=== PATIENT | female | born 1980 | race African-American/Black ===

== ENCOUNTER 2018-04-18 22:02 | Emergency (ER) | payer BC ==
[2018-04-18 22:13] VITALS: BP 139/73
[2018-04-18] MEDS ORDERED: DOXYCYCLINE HYCLATE 100 MG TABLET PO ONE (23:25)
[2018-04-18] MEDS ORDERED: SULFAMETHOXAZOLE/TRIMETHOPRIM 800-160 MG TABLET PO ONE (23:26)
--- NOTE | 2018-04-18 23:32 | ER Document Report ---
ED General - General Chief Complaint: Skin Problem Stated Complaint: LEG PAIN Time Seen by Provider: 04/18/18 23:02 Notes: Patient is a 30-year-old female presents with complaint of edema and swelling in her left lower extremity. She also has edema and swelling in her right lower extremity. She has a history of chronic lymphedema. She has had ultrasounds looking at her legs to rule out DVT and these have been negative. She has had cellulitis once in the past. Cleared with antibiotics. 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 She says that she recently had a flu shot. She had a possible fever a day or 2 after flu shot. That maybe is related to the flu shot. She does start feeling as if she had a fever today and noticed the red areas on her left lower extremity and therefore came to the ER. Not diabetic. TRAVEL OUTSIDE OF THE [place] IN LAST 30 DAYS: No - Related Data Allergies/Adverse Reactions: Penicillins Allergy (Verified 04/18/18 22:56) Past Medical History - Social History Smoking Status: Unknown if Ever Smoked Frequency of alcohol use: None Drug Abuse: None Family History: Reviewed & Not Pertinent Patient has suicidal ideation: No Patient has homicidal ideation: No Renal/ Medical History: Denies: Hx Peritoneal Dialysis Past Surgical History: Reports: Hx Section - x 2 - Immunizations Hx Diphtheria, Pertussis, Tetanus Vaccination: Yes Review of Systems - Review of Systems Notes: My Normal Review Basic REVIEW OF SYSTEMS: CONSTITUTIONAL : Denies fever, chills, or sweats. Denies recent illness. EENT: Denies eye, ear, throat, or mouth pain or symptoms. Denies nasal or sinus congestion. RESPIRATORY: No difficulty breathing. GASTROINTESTINAL: Dental pain or vomiting. MUSCULOSKELETAL: Edema redness in left lower extremity. SKIN: Redness on left lower extremity. NEUROLOGICAL: Denies altered mental status. Denies sensory or motor loss. ALL OTHER SYSTEMS REVIEWED AND NEGATIVE. Physical Exam - Vital signs Vitals: Temp Pulse Resp BP Pulse Ox 98.8 F 79 23 H 139/73 H 96 04/18/18 22:12 04/18/18 22:12 04/18/18 22:12 04/18/18 22:12 04/18/18 22:12 - Notes Notes: General Appearance: Well nourished, alert, cooperative, no acute distress, no obvious discomfort. Vitals: reviewed, See vital signs table. Lungs: No wheezing, No rales, No rhonci, No accessory muscle use, good air exchange bilaterally. Heart: Normal rate, Regular rythm, No murmur, no rub Abdomen: Normal BS, soft, No rigidity, No abdominal tenderness, No guarding, no rebound, no abdominal masses, no organomegaly Extremities: Edema in both lower extremities. Slightly worse on the left. Patient does have 2 areas of deep red blotches that are very warm to touch consistent with cellulitis. Good distal pulses. Skin: warm, dry, appropriate color, cellulitis of left lower extremity Neuro: speech clear, oriented x 3, normal affect, responds appropriately to questions. Course - Re-evaluation Re-evalutation: 04/18/18 23:43 Patient has exam consistent with chronic lymphedema with superimposed cellulitis in left lower extremity. She is a workup for DVT in the past and this has been negative and therefore I do not think she needs further workup for DVT at this time. Her physical exam findings are consistent with beginning cellulitis in left lower extremity. She has had this before. She does work in the hospital and therefore I will double cover her for staph with both doxycycline as well as Bactrim. Doxycycline will also cover for strep infection of the leg. She says she is able to follow-up with her primary care doctor on Saturday. I informed her if she has any spreading redness before then or recurrent fevers that she must return to ER immediately. Patient is off this weekend and therefore encouraged her to keep her legs elevated and to not be on her feet anymore than she needs to. Patient agrees with plan and will be discharged home. Dictation of this chart was performed using voice recognition software; therefore, there may be some unintended grammatical errors. - Vital Signs Vital signs: Temp Pulse Resp BP Pulse Ox 98.8 F 79 23 H 139/73 H 96 04/18/18 22:12 04/18/18 22:12 04/18/18 22:12 04/18/18 22:12 04/18/18 22:12 Discharge - Discharge Clinical Impression: Cellulitis Qualifiers: Site of cellulitis: extremity Site of cellulitis of extremity: lower extremity Laterality: left Qualified Code(s): L03.116 - Cellulitis of left lower limb Condition: Good Disposition: HOME, SELF-CARE Additional Instructions: Please keep your leg elevated this weekend. Take the antibiotics as prescribed. Wear your compression stocking when going back to work on Saturday. Make sure your clean the compression stocking with bleach wand water before wearing it again. Please take the antibiotics as prescribed. Please return to the ER immediately if you develop fevers, worsening redness, difficulty breathing, or feel unwell. Doxycycline will make your skin more sensitive to the sun so please make sure you keep your skin covered or wear sunscreen whenever out in the sun. Please stop the antibiotic and return to the ER if you develop a rash anywhere else on your body. Prescriptions: Doxycycline Hyclate 100 mg PO BID #14 tablet Furosemide [Lasix 20 mg Tablet] 20 mg PO QAM #10 tablet Sulfamethoxazole/Trimethoprim [Bactrim Ds Tablet] 1 each PO BID #14 tablet Referrals: NEAL AYON DO [Primary Care Provider] - 04/22/18
== END 2018-04-18 23:44 | disposition home or self-care (01) ==
LOC: ER 22:02
DX: L03.116 Cellulitis of left lower limb (principal); Z88.0 Allergy status to penicillin
CPT/HCPCS: 99283

== ENCOUNTER → 2020-03-11 | Outpatient (CLI) | payer BC ==
[2020-03-11 09:28] LABS: ALBUMIN 4.7 g/dL (3.5-5.0); ALKALINE PHOSPHATASE 73 U/L (38-126); ANION GAP 12 (5-19); ASPARTATE AMINO TRANSFERASE 20 U/L (14-36); BILIRUBIN,DIRECT 0.3 mg/dL (0.0-0.4); BILIRUBIN,TOTAL 0.4 mg/dL (0.2-1.3); BLOOD UREA NITROGEN 10 mg/dL (7-20); CALCIUM 9.8 mg/dL (8.4-10.2); CARBON DIOXIDE 25 mmol/L (22-30); CHLORIDE 102 mmol/L (98-107); GLUCOSE 117 mg/dL (75-110); POTASSIUM 3.9 mmol/L (3.6-5.0); TOTAL PROTEIN 8.6 g/dL (6.3-8.2)
== END ==
LOC: OD 08:27
PROVIDERS: ATTEND Family Medicine
DX: B35.1 Tinea unguium (principal)
CPT/HCPCS: 36415; 80053

== ENCOUNTER → 2020-04-01 | Outpatient (CLI) | payer BC ==
[2020-04-01 09:50] LABS: ABSOLUTE BASOPHILS # (AUTO) 0.1 10^3/uL (0.0-0.2); ABSOLUTE EOSINOPHILS # (AUTO) 0.1 10^3/uL (0.0-0.6); ABSOLUTE LYMPHOCYTES (AUTO) 2.7 10^3/uL (0.5-4.7); ABSOLUTE MONOCYTES (AUTO) 0.4 10^3/uL (0.1-1.4); ABSOLUTE NEUT (AUTO) 3.4 10^3/uL (1.7-8.2); BASOPHILS % (AUTO) 0.8 % (0-2); EOSINOPHILS % (AUTO) 1.7 % (0-6); HEMATOCRIT 31.1 % (36.0-47.0); HEMOGLOBIN 10.1 g/dL (12.0-15.5); LYMPHOCYTES % (AUTO) 40.3 % (13-45); MEAN CORPUSCULAR HEMOGLOBIN 24.8 pg (27.0-33.4); MEAN CORPUSCULAR HGB CONC 32.6 g/dL (32.0-36.0); MEAN CORPUSCULAR VOLUME 76 fl (80-97); PLATELET COUNT 439 10^3/uL (150-450); RED BLOOD COUNT 4.09 10^6/uL (3.72-5.28); RED CELL DISTRIBUTION WIDTH 14.8 % (11.5-14.0); SEGMENTED NEUTROPHILS % (AUTO) 51.2 % (42-78); TOTAL CELLS COUNTED % (AUTO) 100 %; WHITE BLOOD COUNT 6.7 10^3/uL (4.0-10.5)
[2020-04-01 10:18] LABS: ALBUMIN 4.5 g/dL (3.5-5.0); ALKALINE PHOSPHATASE 62 U/L (38-126); ANION GAP 12 (5-19); ASPARTATE AMINO TRANSFERASE 16 U/L (14-36); BILIRUBIN,DIRECT 0.3 mg/dL (0.0-0.4); BILIRUBIN,TOTAL 0.5 mg/dL (0.2-1.3); BLOOD UREA NITROGEN 11 mg/dL (7-20); CALCIUM 9.4 mg/dL (8.4-10.2); CARBON DIOXIDE 23 mmol/L (22-30); CHLORIDE 104 mmol/L (98-107); CHOLESTEROL 205.07 mg/dL (0-200); GLUCOSE 108 mg/dL (75-110); TOTAL PROTEIN 7.9 g/dL (6.3-8.2); TRIGLYCERIDES 109 mg/dL (<150)
[2020-04-01 10:28] LABS: DIRECT LDL 152 mg/dL (<100)
[2020-04-02 05:38] LABS: HEPATITIS C VIRUS AB <0.1 s/co ratio (0.0-0.9)
== END ==
LOC: OD 08:38
PROVIDERS: ATTEND Registered Nurse
DX: Z00.00 Encounter for general adult medical examination without abnormal findings (principal); D64.9 Anemia, unspecified; R53.83 Other fatigue; I10 Essential (primary) hypertension; L30.9 Dermatitis, unspecified; I89.0 Lymphedema, not elsewhere classified; R73.9 Hyperglycemia, unspecified; Z79.899 Other long term (current) drug therapy
CPT/HCPCS: 36415; 80053; 80061; 82306; 83036; 84443; 85025; 86803; 86804